=== PATIENT | male | born 1960 | race Two or more races ===

== ENCOUNTER 2023-08-01 23:03 | Inpatient (IN) | payer OTHER, SELFPAY ==
[~2023-08-01] VITALS: Ht 172.7 cm; Wt 84.9 kg
[2023-08-01 23:23] LABS: Basophils # (auto) 0.1 10 ^3/uL (0-0.2); Basophils % (auto) 0.6 % (0.0-2.0); Eosinophils # (auto) 0.2 10 ^3/uL (0-0.8); Hematocrit 43.5 % (41.0-53.0); Hemoglobin 14.6 g/dL (13.5-17.5); Lymphocytes % (auto) 41.1 % (10.0-50.0); Mean Corpuscular Hemoglobin 32.7 pg (28.0-32.0); Mean Corpuscular Hgb Conc. 33.6 g/dL (32.0-36.0); Mean Corpuscular Volume 97.1 fL (80.0-100.0); Monocytes % (auto) 9.8 % (0.0-12.0); Neutrophils # (auto) 4.6 10 ^3/uL (1.6-8.6); Neutrophils % (auto) 46.5 % (37.0-80.0); Red Blood Cells 4.48 10^6/uL (4.5-5.90); Red Cell Distribution Width 13.2 % (11.8-14.3); White Blood Cell 9.8 10^3/uL (4.4-10.8)
[2023-08-01 23:37] LABS: INR 1.05 (0.9-1.15); Partial Thromboplastin Time 27.5 SEC (24.5-34.5)
[2023-08-01 23:40] LABS: Alanine Aminotransferase 25 U/L (7-40); Albumin 4.3 g/dL (3.2-4.8); Alkaline Phosphatase 72 U/L (46-116); Anion Gap 6 (5-15); Aspartate Aminotransferase 22 U/L (13-40); BUN/Creatinine Ratio 16.7 (10.0-20.0); Bilirubin, Total 0.3 mg/dL (0.2-1.0); Blood Urea Nitrogen 16 mg/dL (9-23); Calcium 9.5 mg/dL (8.7-10.4); Carbon Dioxide 26 mmol/L (20-30); Chloride 106 mmol/L (98-107); Glucose 173 mg/dL (74-106); Potassium 3.6 mmol/L (3.5-5.1); Sodium 138 mmol/L (136-145); Total Protein 7.4 g/dL (5.7-8.2)
[2023-08-02] VITALS (10 sets, daily range): BP systolic 123–142; BP diastolic 76–87; PULSE 53–80; RESP 12–18; TEMP 99.2; O2SAT 94–98
[2023-08-02] MEDS: ASPirin-EC 325mg tab PO ONE (01:26)
[2023-08-02] MEDS: HEPARIN SODIUM (PORCINE) 5000 UNITS/ML 1ML VIAL IV ONE (01:27)
[2023-08-02] MEDS ORDERED: NITROGLYCERIN 0.4 MG SL TAB SL PRN (01:30)
[2023-08-02] MEDS ORDERED: ONDANSETRON HCL 4 MG/2 ML VIAL IV PRN (01:30)
[2023-08-02] MEDS ORDERED: MORPHINE SULFATE INJ 2 MG/ml SYRG IV PRN (01:30)
[2023-08-02] MEDS: HEPARIN DRIP/D5W 100UNITS/ML 250 ML IV SCH ×2 (02:27→09:46)
[2023-08-02] MEDS: ASPirin 81 mg TAB PO SCH (08:32)
[2023-08-02 08:52] LABS: INR 1.05 (0.9-1.15); Partial Thromboplastin Time 47.8 SEC (24.5-34.5)
[2023-08-02 12:18] LABS: Magnesium 1.9 mg/dL (1.6-2.6)
[2023-08-02] MEDS: VERAPAMIL 2.5MG/ML INJ 2ML VIAL IV ONE (12:28)
[2023-08-02] MEDS: HEPARIN SODIUM (PORCINE) 5000 UNITS/ML 1ML VIAL ONE (12:28)
[2023-08-02] MEDS: ANGIOMAX 250 MG VIAL IV ONE (12:28)
[2023-08-02] MEDS: fentaNYL CITRATE 100 MCG/2 ML VL ONE (12:29)
[2023-08-02] MEDS: SODIUM CHL 0.9% 50 ML ONE (12:29)
[2023-08-02] MEDS: MIDAZOLAM HCL 2MG/2ML 2ml VIAL (1mg/ml) ONE (12:29)
[2023-08-02] MEDS: LIDOCAINE 1% HCL (LOCAL ANESTH.) INJ 20ML MDV ONE (12:45)
[2023-08-02] MEDS: IODIXANOL 320MG/ML 100ML BTL IV ONE (12:45)
[2023-08-02] MEDS: CLOPIDOGREL BISULFATE 75 MG TAB ONE (13:57)
[2023-08-02] MEDS: ATORVASTATIN 20 MG TAB PO SCH (21:58)
[2023-08-03 05:00] VITALS: BP 123/83; PULSE 57; RESP 18; TEMP 98.1; O2SAT 100
[2023-08-03 05:54] LABS: Basophils # (auto) 0 10 ^3/uL (0-0.2); Basophils % (auto) 0.4 % (0.0-2.0); Eosinophils # (auto) 0.2 10 ^3/uL (0-0.8); Eosinophils % (auto) 2.1 % (0.0-7.0); Hematocrit 44.2 % (41.0-53.0); Hemoglobin 14.8 g/dL (13.5-17.5); Lymphocytes # (auto) 2.9 10 ^3/uL (0.4-5.4); Lymphocytes % (auto) 33.4 % (10.0-50.0); Mean Corpuscular Hemoglobin 32.4 pg (28.0-32.0); Mean Corpuscular Hgb Conc. 33.5 g/dL (32.0-36.0); Mean Corpuscular Volume 96.5 fL (80.0-100.0); Monocytes # (auto) 0.9 10 ^3/uL (0-1.3); Monocytes % (auto) 10.2 % (0.0-12.0); Neutrophils # (auto) 4.7 10 ^3/uL (1.6-8.6); Neutrophils % (auto) 53.9 % (37.0-80.0); Nucleated Red Blood Cells % 0.1 %; Red Blood Cells 4.58 10^6/uL (4.5-5.90); Red Cell Distribution Width 13.7 % (11.8-14.3); White Blood Cell 8.6 10^3/uL (4.4-10.8)
[2023-08-03 06:10] LABS: Alanine Aminotransferase 26 U/L (7-40); Albumin 4.1 g/dL (3.2-4.8); Alkaline Phosphatase 74 U/L (46-116); Anion Gap 4 (5-15); Aspartate Aminotransferase 46 U/L (13-40); Bilirubin, Total 0.5 mg/dL (0.2-1.0); Blood Urea Nitrogen 12 mg/dL (9-23); Calcium 9.5 mg/dL (8.7-10.4); Carbon Dioxide 27 mmol/L (20-30); Chloride 106 mmol/L (98-107); Glucose 130 mg/dL (74-106); Potassium 4.5 mmol/L (3.5-5.1); Sodium 137 mmol/L (136-145); Total Protein 7.1 g/dL (5.7-8.2)
[2023-08-03 08:00] VITALS: PULSE 64
[2023-08-03 09:00] VITALS: BP 126/75; PULSE 70; RESP 18; TEMP 98.5; O2SAT 94
[2023-08-03] MEDS: CLOPIDOGREL BISULFATE 75 MG TAB PO SCH (09:17)
[2023-08-03] MEDS: ASPirin 81 mg TAB PO SCH (09:17)
[2023-08-03] MEDS ORDERED: ASPI-325 PO (12:22)
[2023-08-03] MEDS ORDERED: ATOR40TA52 PO (12:22)
[2023-08-03] MEDS ORDERED: LISI-275 PO (12:22)
[2023-08-03] MEDS ORDERED: CLOP75TA70 PO (12:22)
[2023-08-03 13:00] VITALS: BP 128/80; PULSE 77; RESP 18; TEMP 98.3; O2SAT 96
== END 2023-08-03 15:28 | disposition home or self-care (01) | DRG 322 ==
LOC: ER 23:03 → EDBD 23:03 → TELE 08-02 01:17 → TELE-EAST 08-02 16:06
PROVIDERS: ADMIT Nurse Practitioner; ATTEND Internal Medicine
PROC: 4A023N7 Measurement of Cardiac Sampling and Pressure, Left Heart, Percutaneous Approach (ICD-10-PCS; principal; 2023-08-02)
PROC: 027034Z Dilation of Coronary Artery, One Artery with Drug-eluting Intraluminal Device, Percutaneous Approach (ICD-10-PCS; 2023-08-02)
PROC: B211YZZ Fluoroscopy of Multiple Coronary Arteries using Other Contrast (ICD-10-PCS; 2023-08-02)
PROC: 4A033BC Measurement of Arterial Pressure, Coronary, Percutaneous Approach (ICD-10-PCS; 2023-08-02)
DX: I21.4 Non-ST elevation (NSTEMI) myocardial infarction (principal); I10 Essential (primary) hypertension; E78.5 Hyperlipidemia, unspecified; E66.9 Obesity, unspecified; E11.9 Type 2 diabetes mellitus without complications; F10.10 Alcohol abuse, uncomplicated; I16.0 Hypertensive urgency; I25.10 Atherosclerotic heart disease of native coronary artery without angina pectoris; Z79.4 Long term (current) use of insulin; Z68.28 Body mass index [BMI] 28.0-28.9, adult; Y90.9 Presence of alcohol in blood, level not specified
CPT/HCPCS: 36415; 70450; 71045; 80053; 80061; 83036; 83735; 84443; 84484; 85025; 85610; 85730; 92941; 93005; 93306; 93458; 93571; 99152; G0378; J2001; J2250; Q9967